=== PATIENT | male | born 1945 | race Caucasian/White ===

== ENCOUNTER 2017-02-09 10:19 | Observation (INO) | payer OTHER, MEDICARE ==
[~2017-02-09] VITALS: Ht 177.8 cm; Wt 100.0 kg
[~2017-02-09 10:19] MED LIST: ASPIR-LOW81 MG PO; BYSTOLIC10 MG PO; BYSTOLIC5 MG PO; CARVEDILOL25 MG PO; FLEXERIL10 MG PO; HEPARIN SO5000 UNITS SC; LANTUS 10100 UNITS/ SC; LISINOPRIL10 MG PO; LYRICA100 MG PO; MEDROL 2 MG TAB2 MG PO; MEDROL DOSEPAK4 MG PO; NAFCILLIN SODIUM2 GM IM; NAPROXEN500 MG PO; NOVOLOG PE100 UNITS/ SC; VALIUM5 MG PO; VICODIN 5-3001 EACH PO; VYTORIN 10/41 TABLET PO; ZITHROMAX250 MG PO; ZOFRAN4 MG PO
[2017-02-09 11:47] LABS: EOSINOPHIL COUNT 0.1 K/uL (0-0.3); HEMATOCRIT 36.1 % (38.0-50.0); INSTRUMENT ABS NEUTROPHIL CT 2.2 K/uL; LYMPHOCYTE COUNT 1.4 K/uL (1.0-2.8); MCH 28.5 PG (29.0-34.0); MCHC 33.8 G/DL (30.0-36.0); MCV 84.3 FL (86-99); MONOCYTE (%) 7.9 % (3-12); MONOCYTE COUNT 0.3 K/uL (0-0.8); NEUTROPHIL (%) 54.8 % (45-76); NEUTROPHIL COUNT 2.2 K/uL (1.8-6.4); PLATELET COUNT 154 K/uL (156-360); RBC DIS.WIDTH-CV 12.4 % (11.8-14.6); RBC DIS.WIDTH-SD 37.2 % (39-53); RED BLOOD COUNT 4.28 M/uL (4.00-5.50); WHITE BLOOD COUNT 4.1 K/uL (4.1-10.2)
[2017-02-09 12:18] LABS: ANION GAP 9 MEQ/L (2-14); CHLORIDE 103 MEQ/L (99-109); GFR ESTIMATE (CALCULATED) 46 mL/min/; GLUCOSE 156 mg/dL (70-99); POTASSIUM 4.6 MEQ/L (3.7-5.4); SAMPLE HEMOLYSIS CHECK 0; SAMPLE ICTERIC CHECK 0; SAMPLE LIPEMIA CHECK 0; SODIUM 134 MEQ/L (136-147); UREA NITROGEN (BUN) 36 mg/dL (9-23)
[2017-02-09 12:21] LABS: TROP-I INTERPRETATION NEGATIVE; TROPONIN-I 0.03 ng/mL (0.0-0.30)
[2017-02-09 14:23] VITALS: BP 185/86
[2017-02-09 14:38] VITALS: BP 166/83
[2017-02-09 15:47] VITALS: BP 166/84
[2017-02-09 15:49] VITALS: BP 154/88; BP 156/88
[2017-02-09] MEDS ORDERED: TRICOR145 MG PO (18:05)
[2017-02-09] MEDS ORDERED: ZOLOFT100 MG PO (18:05)
[2017-02-09] MEDS ORDERED: NEURONTIN100 MG PO (18:06)
[2017-02-09] MEDS ORDERED: FLONASE SENSIM9.9 ML BOTH NARES (18:06)
[2017-02-09] MEDS ORDERED: FISH OIL 1,001000 M2 PO (18:07)
[2017-02-09 18:28] LABS: TROP-I INTERPRETATION NEGATIVE; TROPONIN-I 0.03 ng/mL (0.0-0.30)
[2017-02-09 21:00] VITALS: BP 156/77
[2017-02-09 23:31] LABS: TROP-I INTERPRETATION NEGATIVE; TROPONIN-I 0.02 ng/mL (0.0-0.30)
[2017-02-10 00:14] VITALS: BP 141/88
[2017-02-10 04:30] VITALS: BP 138/66
[2017-02-10 06:31] LABS: BASOPHIL COUNT 0.1 K/uL (0-0.1); EOSINOPHIL COUNT 0.1 K/uL (0-0.3); IMMATURE GRANULOCYTE (%) 0.3 % (0.0-0.7); INSTRUMENT ABS NEUTROPHIL CT 1.4 K/uL; LYMPHOCYTE COUNT 1.5 K/uL (1.0-2.8); MCV 85.2 FL (86-99); MEAN PLAT.VOLUME 9.7 uM^3 (9.0-12.4); MONOCYTE (%) 7.5 % (3-12); MONOCYTE COUNT 0.3 K/uL (0-0.8); NEUTROPHIL (%) 42.5 % (45-76); NEUTROPHIL COUNT 1.4 K/uL (1.8-6.4); PLATELET COUNT 156 K/uL (156-360); RBC DIS.WIDTH-CV 12.5 % (11.8-14.6); RED BLOOD COUNT 4.11 M/uL (4.00-5.50); WHITE BLOOD COUNT 3.3 K/uL (4.1-10.2)
[2017-02-10 07:36] LABS: ALKALINE PHOSPHATASE 48 IU/L (3-129); ANION GAP 11 MEQ/L (2-14); CHLORIDE 105 MEQ/L (99-109); DIRECT BILIRUBIN 0.1 mg/dL (0.0-0.3); GFR ESTIMATE (CALCULATED) 53 mL/min/; GLUCOSE 179 mg/dL (70-99); POTASSIUM 4.7 MEQ/L (3.7-5.4); SAMPLE HEMOLYSIS CHECK 0; SAMPLE ICTERIC CHECK 0; SAMPLE LIPEMIA CHECK 0; SODIUM 137 MEQ/L (136-147); TOTAL BILIRUBIN 0.4 MG/DL (0.0-1.0); UREA NITROGEN (BUN) 33 mg/dL (9-23)
[2017-02-10 08:12] LABS: POINT-OF-CARE METER ID UU14162513
[2017-02-10 08:21] VITALS: BP 165/93
== END 2017-02-10 11:15 | disposition home or self-care (01) ==
LOC: EME 10:19 → EDOF 12:40 → 5WEST 12:40 → EDOF 12:40 → 5WEST 14:20
PROVIDERS: Emergency Medicine; Internal Medicine; Nurse Practitioner Adult Health
DX: R55 Syncope and collapse (principal); I95.9 Hypotension, unspecified; R42 Dizziness and giddiness; R15.9 Full incontinence of feces; R19.7 Diarrhea, unspecified; E11.9 Type 2 diabetes mellitus without complications; I10 Essential (primary) hypertension; J45.909 Unspecified asthma, uncomplicated; E66.9 Obesity, unspecified; Z68.31 Body mass index [BMI] 31.0-31.9, adult; Z87.891 Personal history of nicotine dependence; Z79.4 Long term (current) use of insulin
CPT/HCPCS: 70450; 71010; 80048; 80076; 82948; 84484; 85025; 93005; 99281; 99285; G0378; J1815; J7030

== ENCOUNTER 2017-03-19 08:45 | Inpatient (IN) | payer OTHER, MEDICARE ==
[~2017-03-19] VITALS: Ht 175.3 cm; Wt 100.0 kg
[~2017-03-19 08:45] MED LIST changes: +FISH OIL 1,001000 M2 PO; +FLONASE SENSIM9.9 ML BOTH NARES; +NEURONTIN100 MG PO; +TRICOR145 MG PO; +ZOLOFT100 MG PO
[2017-03-19 09:27] LABS: BASOPHIL COUNT 0.1 K/uL (0-0.1); EOSINOPHIL (%) 2.9 % (0-5); EOSINOPHIL COUNT 0.1 K/uL (0-0.3); HEMATOCRIT 40.1 % (38.0-50.0); INSTRUMENT ABS NEUTROPHIL CT 2.4 K/uL; LYMPHOCYTE COUNT 1.3 K/uL (1.0-2.8); MCH 28.6 PG (29.0-34.0); MCHC 32.7 G/DL (30.0-36.0); MCV 87.6 FL (86-99); MEAN PLAT.VOLUME 9.4 uM^3 (9.0-12.4); MONOCYTE (%) 6.5 % (3-12); MONOCYTE COUNT 0.3 K/uL (0-0.8); NEUTROPHIL (%) 57.5 % (45-76); NEUTROPHIL COUNT 2.4 K/uL (1.8-6.4); PLATELET COUNT 219 K/uL (156-360); RBC DIS.WIDTH-CV 13.8 % (11.8-14.6); RBC DIS.WIDTH-SD 43.8 % (39-53); RED BLOOD COUNT 4.58 M/uL (4.00-5.50); WHITE BLOOD COUNT 4.2 K/uL (4.1-10.2)
[2017-03-19 09:37] LABS: INTER. NORMALIZED RATIO 1.1; PROTHROMBIN TIME 10.8 (9.2-11.2); PTT 28.9 (25-32)
[2017-03-19 09:41] LABS: CHLORIDE 106 mEq/L (99-109); POTASSIUM 5.3 mEq/L (3.7-5.4); SODIUM 138 mEq/L (136-147)
[2017-03-19 09:42] LABS: GLUCOSE 131 mg/dL (70-99)
[2017-03-19 09:44] LABS: ANION GAP 9 MEQ/L (2-14)
[2017-03-19 09:46] LABS: GFR ESTIMATE (CALCULATED) 49 mL/min/
[2017-03-19 09:47] LABS: UREA NITROGEN (BUN) 27 mg/dL (9-23)
[2017-03-19 09:51] LABS: TROP-I INTERPRETATION NEGATIVE; TROPONIN-I 0.03 ng/mL (0.0-0.30)
[2017-03-19] MEDS ORDERED: FLONASE ALLERG9.9 ML BOTH NARES (11:02)
[2017-03-19] MEDS ORDERED: GEMFIBROZIL600 MG PO (11:03)
[2017-03-19 12:10] VITALS: BP 132/78
[2017-03-19 15:05] VITALS: BP 172/93
[2017-03-19 15:21] LABS: TROP-I INTERPRETATION NEGATIVE; TROPONIN-I 0.04 ng/mL (0.0-0.30)
[2017-03-19 16:32] LABS: POINT-OF-CARE METER ID UU13113717
[2017-03-19 19:29] VITALS: BP 132/72
[2017-03-19 21:11] LABS: TROP-I INTERPRETATION NEGATIVE; TROPONIN-I 0.04 ng/mL (0.0-0.30)
[2017-03-19 21:18] LABS: D-DIMER ELISA 1.13 mg/L FEU (< 0.57)
[2017-03-19 23:25] VITALS: BP 110/56
[2017-03-20] VITALS (7 sets, daily range): BP systolic 98–154; BP diastolic 60–93
[2017-03-20 04:23] LABS: HEMATOCRIT 35.2 % (38.0-50.0); MCH 28.6 PG (29.0-34.0); MCV 86.7 FL (86-99); MEAN PLAT.VOLUME 9.1 uM^3 (9.0-12.4); PLATELET COUNT 182 K/uL (156-360); RBC DIS.WIDTH-CV 13.6 % (11.8-14.6); RBC DIS.WIDTH-SD 42.5 % (39-53); RED BLOOD COUNT 4.06 M/uL (4.00-5.50); WHITE BLOOD COUNT 3.7 K/uL (4.1-10.2)
[2017-03-20 04:35] LABS: CHLORIDE 103 mEq/L (99-109); POTASSIUM 4.9 mEq/L (3.7-5.4); SODIUM 137 mEq/L (136-147)
[2017-03-20 04:37] LABS: GLUCOSE 153 mg/dL (70-99)
[2017-03-20 04:38] LABS: ANION GAP 11 MEQ/L (2-14)
[2017-03-20 04:41] LABS: GFR ESTIMATE (CALCULATED) 40 mL/min/
[2017-03-20 04:42] LABS: UREA NITROGEN (BUN) 33 mg/dL (9-23)
[2017-03-20 04:45] LABS: TROP-I INTERPRETATION NEGATIVE; TROPONIN-I 0.03 ng/mL (0.0-0.30)
[2017-03-20 11:08] LABS: TROP-I INTERPRETATION NEGATIVE; TROPONIN-I 0.03 ng/mL (0.0-0.30)
[2017-03-20 12:34] LABS: POINT-OF-CARE METER ID UU14174225
[2017-03-20 15:12] LABS: POINT-OF-CARE METER ID UU13113696
[2017-03-20 16:35] LABS: POINT-OF-CARE METER ID UU13113819; POINT-OF-CARE USER ID 515036437
[2017-03-20 21:58] LABS: POINT-OF-CARE METER ID UU14174216
[2017-03-21 03:00] VITALS: BP 117/69
[2017-03-21 07:54] VITALS: BP 160/81
[2017-03-21 08:02] LABS: MCH 28.7 PG (29.0-34.0); MCHC 33.2 G/DL (30.0-36.0); MCV 86.3 FL (86-99); MEAN PLAT.VOLUME 9.3 uM^3 (9.0-12.4); PLATELET COUNT 197 K/uL (156-360); RBC DIS.WIDTH-CV 13.4 % (11.8-14.6); RED BLOOD COUNT 3.94 M/uL (4.00-5.50); WHITE BLOOD COUNT 3.8 K/uL (4.1-10.2)
[2017-03-21 08:28] LABS: ANION GAP 10 MEQ/L (2-14); CHLORIDE 105 MEQ/L (99-109); GFR ESTIMATE (CALCULATED) 49 mL/min/; POTASSIUM 4.9 MEQ/L (3.7-5.4); SAMPLE HEMOLYSIS CHECK 0; SAMPLE ICTERIC CHECK 0; SAMPLE LIPEMIA CHECK 0; SODIUM 139 MEQ/L (136-147); UREA NITROGEN (BUN) 31 mg/dL (9-23)
[2017-03-21 08:31] LABS: GLUCOSE 95 mg/dL (70-99)
[2017-03-21 11:37] LABS: POINT-OF-CARE METER ID UU14174216
[2017-03-21 12:00] VITALS: BP 138/78
[2017-03-21 16:00] VITALS: BP 114/59
[2017-03-21 20:15] VITALS: BP 134/63
[2017-03-21 21:18] LABS: POINT-OF-CARE METER ID UU14174216; POINT-OF-CARE USER ID ENVMNS
[2017-03-21 23:00] VITALS: BP 102/59
[2017-03-22 03:15] VITALS: BP 135/80
[2017-03-22 07:55] LABS: ANION GAP 10 MEQ/L (2-14); CHLORIDE 99 MEQ/L (99-109); GFR ESTIMATE (CALCULATED) 46 mL/min/; GLUCOSE 121 mg/dL (70-99); POTASSIUM 4.5 MEQ/L (3.7-5.4); SAMPLE HEMOLYSIS CHECK 0; SAMPLE ICTERIC CHECK 0; SAMPLE LIPEMIA CHECK 0; SODIUM 133 MEQ/L (136-147); UREA NITROGEN (BUN) 34 mg/dL (9-23)
[2017-03-22 08:00] VITALS: BP 141/80
[2017-03-22 12:30] VITALS: BP 120/60
[2017-03-22 16:40] VITALS: BP 126/74
[2017-03-22 19:20] VITALS: BP 128/64
[2017-03-22 21:23] LABS: POINT-OF-CARE METER ID UU14174216
[2017-03-22 23:30] VITALS: BP 124/73
[2017-03-23 03:48] VITALS: BP 121/68
[2017-03-23 07:34] LABS: ANION GAP 11 MEQ/L (2-14); CHLORIDE 100 MEQ/L (99-109); GFR ESTIMATE (CALCULATED) 46 mL/min/; POTASSIUM 4.7 MEQ/L (3.7-5.4); SAMPLE HEMOLYSIS CHECK 0; SAMPLE ICTERIC CHECK 0; SAMPLE LIPEMIA CHECK 0; SODIUM 134 MEQ/L (136-147); UREA NITROGEN (BUN) 39 mg/dL (9-23)
[2017-03-23 07:39] LABS: GLUCOSE 224 mg/dL (70-99)
[2017-03-23 09:00] VITALS: BP 139/65
[2017-03-23 11:01] LABS: POINT-OF-CARE METER ID UU13113781
[2017-03-23 12:00] VITALS: BP 113/62
[2017-03-23] MEDS ORDERED: DUONEB 2.5-0.5 M3 ML AEROSOL (13:49)
[2017-03-23] MEDS ORDERED: FUROSEMIDE20 MG PO (13:50)
[2017-03-23] MEDS ORDERED: BENZONATATE100 MG PO (13:51)
[2017-03-23] MEDS ORDERED: LIDOCAINE700 MG TD (13:52)
[2017-03-23 15:54] LABS: POINT-OF-CARE METER ID UU13113781
[2017-03-23 17:00] VITALS: BP 136/75
[2017-03-23 19:45] VITALS: BP 125/66
[2017-03-23 21:22] LABS: POINT-OF-CARE METER ID UU13113781
[2017-03-24 00:10] VITALS: BP 118/62
[2017-03-24 04:20] VITALS: BP 103/56
[2017-03-24 07:40] VITALS: BP 126/69
[2017-03-24 08:23] LABS: POINT-OF-CARE METER ID UU14174216; POINT-OF-CARE USER ID ENVKC36
[2017-03-24] MEDS ORDERED: LISINOPRIL2.5 MG PO (11:12)
[2017-03-24 11:43] VITALS: BP 136/75
[2017-03-24 11:46] LABS: POINT-OF-CARE METER ID UU13113698; POINT-OF-CARE USER ID ENVKC36
== END 2017-03-24 13:42 | disposition designated cancer center or children's hospital, planned readmission (85) | DRG 287 ==
LOC: EME 08:45 → EDOF 10:40 → 4EAST 10:40 → 5SOUTH 10:40 → 4EAST 03-20 13:42
PROVIDERS: Emergency Medicine; Internal Medicine; Nurse Practitioner Adult Health
PROC: 5A09357 Assistance with Respiratory Ventilation, Less than 24 Consecutive Hours, Continuous Positive Airway Pressure (ICD-10-PCS; 2017-03-19)
PROC: B2151ZZ Fluoroscopy of Left Heart using Low Osmolar Contrast (ICD-10-PCS; principal; 2017-03-20)
PROC: 4A023N7 Measurement of Cardiac Sampling and Pressure, Left Heart, Percutaneous Approach (ICD-10-PCS; principal; 2017-03-20)
PROC: B2111ZZ Fluoroscopy of Multiple Coronary Arteries using Low Osmolar Contrast (ICD-10-PCS; principal; 2017-03-20)
DX: I25.110 Atherosclerotic heart disease of native coronary artery with unstable angina pectoris (principal); I13.0 Hypertensive heart and chronic kidney disease with heart failure and stage 1 through stage 4 chronic kidney disease, or unspecified chronic kidney disease; I50.20 Unspecified systolic (congestive) heart failure; E11.22 Type 2 diabetes mellitus with diabetic chronic kidney disease; N18.3 Chronic kidney disease, stage 3 (moderate); I25.5 Ischemic cardiomyopathy; J45.909 Unspecified asthma, uncomplicated; G47.33 Obstructive sleep apnea (adult) (pediatric); E66.9 Obesity, unspecified; E78.1 Pure hyperglyceridemia; E78.5 Hyperlipidemia, unspecified; Z68.34 Body mass index [BMI] 34.0-34.9, adult; Z79.4 Long term (current) use of insulin; Z87.891 Personal history of nicotine dependence; Z90.49 Acquired absence of other specified parts of digestive tract
CPT/HCPCS: 71010; 71250; 78582; 80048; 82948; 83880; 84484; 85025; 85027; 85379; 85610; 85730; 87040; 87506; 93005; 93306; 94640; 94640 76; 94660; 94799; 99281; 99285; A9540; A9567; C1769; C1887; J0456; J0696; J1644; J1815; J1940; J2250; J3010; J7040; J7050

== ENCOUNTER 2017-04-15 21:03 | Emergency (ER) | payer OTHER, MEDICARE ==
[~2017-04-15] VITALS: Ht 175.3 cm; Wt 99.5 kg
[~2017-04-15 21:03] MED LIST changes: +BENZONATATE100 MG PO; +DUONEB 2.5-0.5 M3 ML AEROSOL; +FLONASE ALLERG9.9 ML BOTH NARES; +FUROSEMIDE20 MG PO; +GEMFIBROZIL600 MG PO; +LIDOCAINE700 MG TD; +LISINOPRIL2.5 MG PO
[2017-04-15 22:59] VITALS: BP 140/80
== END 2017-04-15 23:02 | disposition home or self-care (01) ==
LOC: EME 21:03
DX: M96.841 Postprocedural hematoma of a musculoskeletal structure following other procedure (principal); Y83.2 Surgical operation with anastomosis, bypass or graft as the cause of abnormal reaction of the patient, or of later complication, without mention of misadventure at the time of the procedure; Z95.1 Presence of aortocoronary bypass graft; I10 Essential (primary) hypertension; E11.9 Type 2 diabetes mellitus without complications; J45.909 Unspecified asthma, uncomplicated; Z79.4 Long term (current) use of insulin; Z79.82 Long term (current) use of aspirin; Z87.891 Personal history of nicotine dependence
CPT/HCPCS: 93971; 99281; 99283